=== PATIENT | female | born 1970 | race Caucasian/White ===

== ENCOUNTER 2022-06-30 18:27 | Emergency (ER) | payer OTHER, SELFPAY | END 2022-06-30 19:40 | LOC: MADERS 18:27 | DX: F10.129 Alcohol abuse with intoxication, unspecified (principal); I10 Essential (primary) hypertension; F17.210 Nicotine dependence, cigarettes, uncomplicated; V89.2XXA Person injured in unspecified motor-vehicle accident, traffic, initial encounter | CPT/HCPCS: 70450; 71045; 72125 ==